=== PATIENT | female | born 1945 | race Caucasian/White ===

== ENCOUNTER 2020-07-02 13:03 | Emergency (ER) | payer MEDICARE, BC ==
--- NOTE | 2020-07-02 14:27 | CRLCR ---
Indication: Chest pain Technique: Chest 2 views Comparison: None Findings: Cardiovascular and mediastinum: Heart size and vasculature are normal in caliber and appearance. Lungs and pleural spaces: Lungs are clear. No sign of infiltrate or mass. No sign of pleural effusion. No pneumothorax. Bones and soft tissues: No significant findings. Impression: No acute or significant findings. Dictated by Nicolas Rodriguez MD @ 07/02/2020 2:26:11 PM Dictated by: Nicolas Rodriguez MD @ 07/02/2020 14:26:16 (Electronically Signed)
--- NOTE | 2020-07-02 15:14 | EDM.PDOC ---
<Nisreen Guzman M - Last Filed: 07/02/20 15:46> ED HPI GENERAL MEDICAL PROBLEM - General Chief Complaint: General Time Seen by Provider: 07/02/20 15:57 Source of Information: Reports: Patient, RN, RN Notes Reviewed History Limitations: Reports: No Limitations - History of Present Illness INITIAL COMMENTS - FREE TEXT/NARRATIVE: Pt was at walk in clinic today for her knee injury that was about 2 weeks ago. Pt mentioned to staff she felt funny and had unusual sensations to face and neck. Pt was sent here for evaluation. Denies CP, SOB, n/v, vertigo, or altered LOC. Pt indicates under a lot of stress and working long hours. 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 Endocrine/Metabolic History: Reports: Hypothyroidism - Infectious Disease History Infectious Disease History: Reports: Chicken Pox, Measles, Mumps - Past Surgical History Head Surgeries/Procedures: Reports: None HEENT Surgical History: Reports: Cataract Surgery, Tonsillectomy Endocrine Surgical History: Reports: None Dermatological Surgical History: Reports: None Social & Family History - Tobacco Use Smoking Status *Q: Never Smoker Second Hand Smoke Exposure: No - Caffeine Use Caffeine Use: Reports: Coffee - Recreational Drug Use Recreational Drug Use: No ED ROS GENERAL - Review of Systems Review Of Systems: See Below Constitutional: Reports: No Symptoms HEENT: Reports: No Symptoms Respiratory: Reports: No Symptoms Cardiovascular: Reports: No Symptoms Endocrine: Reports: No Symptoms GI/Abdominal: Reports: No Symptoms : Reports: No Symptoms Musculoskeletal: Reports: No Symptoms Skin: Reports: No Symptoms Neurological: Reports: Confusion, Numbness (to various areas of face ) Psychiatric: Reports: No Symptoms Hematologic/Lymphatic: Reports: No Symptoms Immunologic: Reports: No Symptoms ED EXAM, GENERAL - Physical Exam Exam: See Below Exam Limited By: No Limitations General Appearance: Alert, No Apparent Distress Head: Normocephalic Neck: Normal Inspection Respiratory/Chest: No Respiratory Distress, Lungs Clear Cardiovascular: Regular Rate, Rhythm (Female) Exam: Deferred Rectal (Female) Exam: Deferred Neurological: Alert, Oriented Psychiatric: Normal Affect Skin Exam: Warm Lymphatic: No Adenopathy Course - Re-Assessments/Exams Free Text/Narrative Re-Assessment/Exam: 07/02/20 15:46 CBC, CMP, Trop, TSH, and CXR all good. Gave results to pt. Departure - Departure Time of Disposition: 15:22 Disposition: Left Without Being Seen 07 Condition: Good Clinical Impression: Hypertension Qualifiers: Hypertension type: essential hypertension Qualified Code(s): I10 - Essential (primary) hypertension - Discharge Information *PRESCRIPTION DRUG MONITORING PROGRAM REVIEWED*: Not Applicable *COPY OF PRESCRIPTION DRUG MONITORING REPORT IN PATIENT ANNA: Not Applicable Instructions: Hypertension, Adult, [id number], Preventing Hypertension Referrals: Peggy Dave PA-C [Primary Care Provider] - Forms: ED Department Discharge Care Plan Goals: Please log your blood pressure screening TWO times daily and journal the findings. Educated on the proper positioning to obtain best readings. Educated on diet, activity, and water consumption. Explained to pt the importance of taking the medication each morning and follow up with primary provider Tuesday. Sepsis Event Note (ED) - Evaluation Sepsis Screening Result: No Definite Risk - Problem List & Annotations (1) Hypertension SNOMED Code(s): 86748098 Code(s): I10 - ESSENTIAL (PRIMARY) HYPERTENSION Status: Acute Priority: High Current Visit: Yes Qualifiers: Hypertension type: essential hypertension Qualified Code(s): I10 - Essential (primary) hypertension - Problem List Review Problem List Initiated/Reviewed/Updated: Yes - Assessment/Plan Plan: Please log your blood pressure screening TWO times daily and journal the findings. Educated on the proper positioning to obtain best readings. Educated on diet, activity, and water consumption. Explained to pt the importance of taking the medication each morning and follow up with primary provider Tuesday. <OfficerJerry - Last Filed: 07/02/20 15:58> ED ROS GENERAL - Review of Systems Reason Not Obtained: Agree with below ED EXAM, GENERAL - Physical Exam Free Text/Narrative:: Agree with below Course - Vital Signs Last Recorded V/S: Last Vital Signs Temp 98.5 F 07/02/20 13:25 Pulse 72 07/02/20 15:09 Resp 16 07/02/20 15:09 BP 179/89 H 07/02/20 15:09 Pulse Ox 95 07/02/20 15:09 - Orders/Labs/Meds Orders: Active Orders 24 hr Category Date Time Status EKG Documentation Completion [RC] ASDIRECTED Care 07/02/20 14:01 Active EKG 12 Lead [EK] Routine Ther 07/02/20 14:01 Ordered Labs: Laboratory Tests 07/02/20 07/02/20 07/02/20 Range/Units 14:00 14:01 14:17 WBC (4.5-11.0) K/uL RBC (3.30-5.50) M/uL Hgb (12.0-15.0) g/dL Hct (36.0-48.0) % MCV (80-98) fL MCH (27-31) pg MCHC (32-36) % Plt Count (150-400) K/uL Neut % (Auto) (36-66) % Lymph % (Auto) (24-44) % [place] % (Auto) (2-6) % Eos % (Auto) (2-4) % Baso % (Auto) (0-1) % Sodium 136 L (140-148) mmol/L Potassium 4.4 (3.6-5.2) mmol/L Chloride 102 (100-108) mmol/L Carbon Dioxide 26 (21-32) mmol/L Anion Gap 12.4 (5.0-14.0) mmol/L BUN 17 (7-18) mg/dL Creatinine 1.0 (0.6-1.0) mg/dL Est Cr Clr Drug Dosing TNP Estimated GFR (MDRD) 54 L (>60) Glucose 95 (74-106) mg/dL Calcium 9.2 (8.5-10.1) mg/dL Magnesium 2.3 (1.8-2.4) mg/dL Total Bilirubin 0.2 (0.2-1.0) mg/dL AST 20 (15-37) U/L ALT 23 (12-78) U/L Alkaline Phosphatase 103 (46-116) U/L Troponin I < 0.017 (0.000-0.056) ng/mL Total Protein 7.4 (6.4-8.2) g/dL Albumin 3.9 (3.4-5.0) g/dL Globulin 3.5 (2.3-3.5) g/dL Albumin/Globulin Ratio 1.1 L (1.2-2.2) TSH, Ultra Sensitive 3.249 (0.358-3.740) uIU/mL Urine Color Yellow (YELLOW) Urine Appearance Clear (CLEAR) Urine pH 6.5 (5.0-8.0) Ur Specific [place] 1.020 (1.008-1.030) Urine Protein Negative (NEGATIVE) mg/dL Urine Glucose (UA) Negative (NEGATIVE) mg/dL Urine Ketones Negative (NEGATIVE) mg/dL Urine Occult Blood Negative (NEGATIVE) Urine Nitrite Negative (NEGATIVE) Urine Bilirubin Negative (NEGATIVE) Urine Urobilinogen 0.2 (0.2-1.0) EU/dL Ur Leukocyte Esterase Negative (NEGATIVE) Urine RBC Not seen (0-5) Urine WBC Not seen (0-5) Ur Epithelial Cells Rare Amorphous Sediment Not seen Urine Bacteria Few Urine Mucus Not seen 07/02/20 Range/Units 14:25 WBC 7.2 (4.5-11.0) K/uL RBC 4.92 (3.30-5.50) M/uL Hgb 14.2 (12.0-15.0) g/dL Hct 43.8 (36.0-48.0) % MCV 89 (80-98) fL MCH 29 (27-31) pg MCHC 32 (32-36) % Plt Count 306 (150-400) K/uL Neut % (Auto) 68 H (36-66) % Lymph % (Auto) 22 L (24-44) % [place] % (Auto) 7 H (2-6) % Eos % (Auto) 2 (2-4) % Baso % (Auto) 1 (0-1) % Sodium (140-148) mmol/L Potassium (3.6-5.2) mmol/L Chloride (100-108) mmol/L Carbon Dioxide (21-32) mmol/L Anion Gap (5.0-14.0) mmol/L BUN (7-18) mg/dL Creatinine (0.6-1.0) mg/dL Est Cr Clr Drug Dosing Estimated GFR (MDRD) (>60) Glucose (74-106) mg/dL Calcium (8.5-10.1) mg/dL Magnesium (1.8-2.4) mg/dL Total Bilirubin (0.2-1.0) mg/dL AST (15-37) U/L ALT (12-78) U/L Alkaline Phosphatase (46-116) U/L Troponin I (0.000-0.056) ng/mL Total Protein (6.4-8.2) g/dL Albumin (3.4-5.0) g/dL Globulin (2.3-3.5) g/dL Albumin/Globulin Ratio (1.2-2.2) TSH, Ultra Sensitive (0.358-3.740) uIU/mL Urine Color (YELLOW) Urine Appearance (CLEAR) Urine pH (5.0-8.0) Ur Specific [place] (1.008-1.030) Urine Protein (NEGATIVE) mg/dL Urine Glucose (UA) (NEGATIVE) mg/dL Urine Ketones (NEGATIVE) mg/dL Urine Occult Blood (NEGATIVE) Urine Nitrite (NEGATIVE) Urine Bilirubin (NEGATIVE) Urine Urobilinogen (0.2-1.0) EU/dL Ur Leukocyte Esterase (NEGATIVE) Urine RBC (0-5) Urine WBC (0-5) Ur Epithelial Cells Amorphous Sediment Urine Bacteria Urine Mucus Sepsis Event Note (ED) - Focused Exam Vital Signs: Vital Signs Temp Pulse Resp BP Pulse Ox 07/02/20 15:09 72 16 179/89 H 95 07/02/20 13:25 98.5 F 85 14 196/83 H 97 07/02/20 13:24 98.5 F 85 14 196/83 H 97 - Assessment/Plan Plan: Assessment Acuity = acute Site and laterality = essential hypertension Etiology = unknown Manifestations = none Location of injury = Home Lab values = CBC, CMP, troponin, thyroid, urinalysis within normal limits chest x-ray shows no acute process EKG demonstrates a sinus rhythm there is no ST elevations or depression does have Q waves in lead III aVF Plan Did review options with her she elected to try lisinopril 10 mg once a day she is going to follow-up with her primary care next week for further evaluation she has had a couple elevated blood pressures at the outpatient setting as well as in the clinic and here about a week apart This note was dictated using [employer] voice recognition software please call with any questions on syntax or grammar.
== END 2020-07-02 16:03 | disposition home or self-care (01) ==
LOC: JP.ED 13:03
DX: I10 Essential (primary) hypertension (principal); E03.9 Hypothyroidism, unspecified; Z79.899 Other long term (current) drug therapy
CPT/HCPCS: 36415; 71046; 80053; 81001; 83735; 84443; 84484; 85025; 93005; 93010; 99283; 99284-25

== ENCOUNTER 2020-07-06 12:55 | Emergency (ER) | payer MEDICARE, BC ==
--- NOTE | 2020-07-06 14:06 | EDM.PDOC ---
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 Departure - Departure Referrals: PCP,None [Primary Care Provider] -
== END 2020-07-06 14:42 | disposition left against medical advice (07) ==
LOC: JP.ED 12:55
DX: Z53.21 Procedure and treatment not carried out due to patient leaving prior to being seen by health care provider (principal)

== ENCOUNTER 2021-05-06 10:28 | Emergency (ER) | payer MEDICARE, BC ==
--- NOTE | 2021-05-06 11:10 | EDM.PDOC ---
ED HPI GENERAL MEDICAL PROBLEM - General Chief Complaint: Cardiovascular Problem Stated Complaint: NEEDS BLOOD PRESSURE CHECKED Time Seen by Provider: 05/06/21 10:55 Source of Information: Reports: Patient History Limitations: Reports: No Limitations - History of Present Illness INITIAL COMMENTS - FREE TEXT/NARRATIVE: 76-year-old female who was on lisinopril for hypertension but decided to stop it because she was doing fine, has been under a lot of stress the last week and took her blood pressure a few times and its been in the 160s and 170s systolic and she just does not feel right so she thought she should be checked. She really has no shortness of breath or peripheral edema. No chest pain or palpitations. She has not seen her primary provider in a while and I am really not sure why she did not just check with her. She did take lisinopril today for the first time. 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: , 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 Endocrine/Metabolic History: Reports: Hypothyroidism - Infectious Disease History Infectious Disease History: Reports: Chicken Pox, Measles, Mumps - Past Surgical History Head Surgeries/Procedures: Reports: None HEENT Surgical History: Reports: Cataract Surgery, Tonsillectomy Endocrine Surgical History: Reports: None Dermatological Surgical History: Reports: None Social & Family History - Tobacco Use Tobacco Use Status *Q: Never Tobacco User - Caffeine Use Caffeine Use: Reports: Soda - Recreational Drug Use Recreational Drug Use: No ED ROS GENERAL - Review of Systems Review Of Systems: See Below Constitutional: Denies: Fever, Chills HEENT: Denies: Vision Change Respiratory: Denies: Shortness of Breath Cardiovascular: Denies: Chest Pain, Palpitations GI/Abdominal: Denies: Abdominal Pain, Nausea, Vomiting : Reports: No Symptoms Skin: Reports: No Symptoms Neurological: Reports: No Symptoms. Denies: Headache Psychiatric: Reports: No Symptoms ED EXAM, GENERAL - Physical Exam Exam: See Below Exam Limited By: No Limitations General Appearance: Alert, No Apparent Distress Eye Exam: Bilateral Eye: Normal Inspection Head: Atraumatic Respiratory/Chest: No Respiratory Distress, Lungs Clear Cardiovascular: Regular Rate, Rhythm. No: Extra Beats GI/Abdominal: Soft, Non-Tender Extremities: Normal Inspection. No: Pedal Edema Neurological: Alert, Oriented Psychiatric: Normal Affect, Normal Mood Skin Exam: Warm, Dry Course - Vital Signs Last Recorded V/S: Last Vital Signs Temp 97.9 F 05/06/21 10:51 Pulse 71 05/06/21 10:51 Resp 18 05/06/21 10:51 BP 165/81 H 05/06/21 10:51 Pulse Ox 98 05/06/21 10:51 - Re-Assessments/Exams Free Text/Narrative Re-Assessment/Exam: 05/06/21 14:39 Blood pressure here is 167/98. Patient was reassured that there is no urgent evaluation or treatment for this other than to continue her 10 mg of lisinopril daily, and I encouraged her also to get her Covid vaccine and follow-up with her primary provider next week. She can follow her blood pressure daily so she has an idea of what kind of trend she is running when she goes in next week. Departure - Departure Time of Disposition: 11:18 Disposition: Home, Self-Care 01 Clinical Impression: Essential hypertension Instructions: Hypertension, Adult Referrals: Peggy Dave PA-C [Primary Care Provider] - Forms: ED Department Discharge Care Plan Goals: Continue daily lisinopril as directed and follow-up with your primary provider in the next 7 to 10 days. Continue to avoid extra salt intake and return anytime if worsening or concerns such as blood pressure of 220/140, chest pressure or shortness of breath. Sepsis Event Note (ED) - Focused Exam Vital Signs: Vital Signs Temp Pulse Resp BP Pulse Ox 05/06/21 10:51 97.9 F 71 18 165/81 H 98
== END 2021-05-06 11:18 | disposition home or self-care (01) ==
LOC: JP.ED 10:28
DX: I10 Essential (primary) hypertension (principal); E03.9 Hypothyroidism, unspecified; Z79.899 Other long term (current) drug therapy
CPT/HCPCS: 99283

== ENCOUNTER 2022-09-05 13:24 | Emergency (ER) | payer MEDICARE, BC ==
[2022-09-05 15:24] LABS: TROPONIN I HIGH SENSITIVITY 10.2 pg/mL (<=60.3)
== END 2022-09-05 16:45 | disposition home or self-care (01) ==
LOC: JP.ED 13:24
DX: I10 Essential (primary) hypertension (principal); E03.9 Hypothyroidism, unspecified; Z79.899 Other long term (current) drug therapy
CPT/HCPCS: 36415; 80048; 83735; 84484; 85025; 93005; 99285

== ENCOUNTER 2022-09-07 09:48 | Emergency (ER) | payer MEDICARE, BC ==
[2022-09-07] MEDS ORDERED: Metoprolol Tartrate 50 MG Tab PO ONE (10:31)
== END 2022-09-07 11:31 | disposition home or self-care (01) ==
LOC: JP.ED 09:48
DX: I10 Essential (primary) hypertension (principal); F41.9 Anxiety disorder, unspecified; Z79.899 Other long term (current) drug therapy
CPT/HCPCS: 99283; A9270